=== PATIENT | female | born 1975 | race Caucasian/White ===

== ENCOUNTER → 2019-04-06 17:28 | Outpatient (CLI) | payer BC, SELFPAY ==
--- NOTE | 2019-04-06 18:15 | MRI_ITS ---
STUDY: MRI LUMBAR SPINE WITHOUT CONTRAST REASON FOR EXAM: Female, 43 years old. Low back pain TECHNIQUE: Standardized fat and water weighted pulse sequences were obtained in the sagittal and axial planes. COMPARISON: None FINDINGS: T12-L1: Normal endplates. Normal disc height, hydration and morphology. Normal bilateral facet joints. Normal central canal and bilateral lateral recesses. Normal bilateral intervertebral neural foramina. Normal lumbar lordosis. There is no substantial scoliosis. Normal conus medullaris that terminates at the L1 level. L1-2: Normal endplates. Normal disc height, hydration and morphology. Normal bilateral facet joints. Normal central canal and bilateral lateral recesses. Normal bilateral intervertebral neural foramina. L2-3: Normal endplates. Normal disc height, hydration and morphology. Normal bilateral facet joints. Normal central canal and bilateral lateral recesses. Normal bilateral intervertebral neural foramina. L3-4: Normal endplates. Normal disc height, hydration and morphology. Normal bilateral facet joints. Normal central canal and bilateral lateral recesses. Normal bilateral intervertebral neural foramina. L4-5: Moderate central and lateral trefoil type spinal stenosis. Hypertrophic facet disease. L5-S1: Normal endplates. Normal disc height, hydration and morphology. Normal bilateral facet joints. Normal central canal and bilateral lateral recesses. Normal bilateral intervertebral neural foramina. Normal visualized sacral ala. Normal visualized paraspinous soft tissue structures. MRI/Spine Lumbar (Routine) IMPRESSION: Moderate central and lateral trefoil type spinal stenosis L4-5 due to hypertrophic facet disease. Electronically Signed: Ezequiel Farrell MD at 22:27 EST , Service support ,
== END ==
PROVIDERS: Referring Provider Chiropractor; Visit Provider Chiropractor
DX: M54.30 Sciatica, unspecified side (principal); M54.5 Low back pain; M54.6 Pain in thoracic spine
CPT/HCPCS: 72148